=== PATIENT | male | born 1955 | race Hispanic/Latino ===

== ENCOUNTER 2018-02-26 06:28 | Day surgery (SDC) | payer BC ==
[2018-02-26] MEDS ORDERED: ECOTRIN PO ONE ×2 (06:52→06:59)
[2018-02-26] MEDS ORDERED: NACL 0.9% 500 ML 500 ML ONE (06:59)
[2018-02-26] MEDS ORDERED: NACL 0.9% 500 ML 500 ML IV SCH (07:00)
[2018-02-26 07:20] LABS: Basophils % (Auto) 0.5 % (0.0-1.8); Eosinophils # (Auto) 0.1 K/mm3 (0.0-0.4); Eosinophils % (Auto) 1.5 % (0.0-4.3); Hematocrit 53.8 % (35.5-45.6); Hemoglobin 17.8 gm/dl (11.8-15.2); Lymphocytes % (Auto) 24.2 % (13.4-35.0); Mean Corpuscular HGB Conc 33 % (32-34); Mean Corpuscular Hemoglobin 28 pg (28-32); Mean Corpuscular Volume 86 fl (84-94); Monocytes % (Auto) 11.5 % (0.0-7.3); Platelet Count 134 K/mm3 (140-440); Red Blood Count 6.28 M/mm3 (3.65-5.03); Red Cell Distribution Width 16.6 % (13.2-15.2)
[2018-02-26 07:34] LABS: INR 1.01 (0.87-1.13)
[2018-02-26 07:43] LABS: BUN/Creatinine Ratio 16; Blood Urea Nitrogen 14 mg/dL (9-20); Calcium 9.8 mg/dL (8.4-10.2); Hemolysis Index 43
[2018-02-26] MEDS ORDERED: HEPARIN 10,000 UNITS/10 ML ONE (08:22)
[2018-02-26] MEDS ORDERED: HEPARIN/NS 5000 UNIT/500ML(CATH LAB) 1,000 ML IR ONE (08:22)
[2018-02-26] MEDS ORDERED: CALAN ONE (08:23)
[2018-02-26] MEDS ORDERED: NITROGLYCERIN SYRINGE 3 ML ONE (08:23)
[2018-02-26] MEDS ORDERED: XYLOCAINE 2% INFILTRATI ONE (08:23)
[2018-02-26] MEDS ORDERED: VERSED ONE (08:39)
[2018-02-26] MEDS ORDERED: SUBLIMAZE ONE (08:40)
--- NOTE | 2018-02-26 09:18 | Short Stay Summary ---
Short Stay Documentation Date of service: 02/26/18 - History H&P: obtained from office - Allergies and Medications Current Medications: Allergies No Known Allergies Allergy (Unverified 02/26/18 06:28) Home Medications Medication Instructions Recorded Confirmed Last Taken Type Apixaban [Eliquis] 20 mg PO BID 02/26/18 02/26/18 02/23/18 History Bupropion HCl [buPROPion] 100 mg PO BID 02/26/18 02/26/18 02/24/18 History Cyclobenzaprine [Flexeril] 10 mg PO TID PRN 02/26/18 02/26/18 Unknown History Fenofibrate [Tricor] 145 mg PO QDAY 02/26/18 02/26/18 02/24/18 History Lisdexamfetamine Dimesylate 50 mg PO DAILY 02/26/18 02/26/18 02/24/18 History [Vyvanse] Rosuvastatin (Nf) [Crestor] 10 mg PO QHS 02/26/18 02/26/18 02/24/18 History SUMAtriptan SUCCINATE [Imitrex] 50 mg PO PRN PRN 02/26/18 02/26/18 Unknown History Zolpidem [Ambien] 10 mg PO QHS PRN 02/26/18 02/26/18 Unknown History Active Medications Sodium Chloride (Nacl 0.9% 500 Ml) 500 mls @ 50 mls/hr IV DIRECT MARCO ANTONIO Stop: 02/26/18 16:59 Last Admin: 02/26/18 07:21 Dose: 50 mls/hr - Brief post op/procedure progress note Date of procedure: 02/26/18 Pre-op diagnosis: sob afib Post-op diagnosis: same Anesthesia: local Estimated blood loss: none Pathology: none - Disposition Condition at discharge: Good Disposition: [id number]-01 TO HOME OR SELFCARE - Discharge Diagnoses (1) SOB (shortness of breath) on exertion Status: Chronic (2) Morbid obesity with BMI of 40.0-44.9, adult Status: Chronic (3) Atrial fibrillation Status: Chronic Qualifiers: Atrial fibrillation type: persistent Qualified Code(s): I48.1 - Persistent atrial fibrillation (4) Hypertension Status: Chronic Qualifiers: Hypertension type: essential hypertension Qualified Code(s): I10 - Essential (primary) hypertension (5) Hyperlipemia, mixed Status: Chronic Short Stay Discharge Plan Activity: advance as tolerated Diet: low cholesterol, low salt Wound: keep clean and dry Follow up with: MEMO CHEN MD [Primary Care Provider] - 7 Days
--- NOTE | 2018-02-26 10:18 | Cardiac Catherization Report ---
LEFT HEART CATHETERIZATION CLINICAL INFORMATION: A 63-year-old gentleman with atrial fibrillation, hypertension, hyperlipidemia transient cardiomyopathy, presents with shortness of breath despite medical therapy negative stress test. Left heart catheterization performed via the right radial artery, sterile technique, local anesthesia, 6-Maldivian radial sheath. Moderate sedation was supervised with 1 mg Versed and 50 mcg of fentanyl. Total sedation time was 20 minutes. START sedation time 8:50 a.m. Finished 9:10 a.m. PROCEDURE FINDINGS: Left system was engaged JL3.5 catheter. Left main large and patent, bifurcates to large LAD that is patent from proximally and distally. Diagonal 1 is a large caliber vessel, patent. Circumflex is a large caliber vessel that is patent. OM1 is a large caliber vessel patent. RCA is a large dominant vessel that is patent, bifurcates into large PDA, PLV that covers the whole lateral wall. LV gram done in BULGARIAN and DIAL view shows normal LV function. LVEDP is 60 mmHg, LV is 138/16, aortic is 136/90. No gradient across the aortic valve on pullback. 5-Maldivian catheters were taken. The guidewire, 6-Maldivian radial sheath was discontinued. Radial dressing applied. No hematoma, no bleeding. SUMMARY: 1. Normal coronaries, normal LV function, left main patent, LAD patent, diagonal patent, circ patent, RCA pain. These are large epicardial vessels. 2. Continue risk factor modification. Discussed in detail with the patient, the patient's family. JOB# [id number] ANA/CORINNE JOHNSON
--- NOTE | 2018-02-26 11:20 | Post Anesthesia Evaluation ---
- Post Anesthesia Evaluation Patient Participated: Yes Airway Patent: Yes Stable Respiratory Function: Yes Nausea/Vomiting: No Temp > 96.8F: Yes Pain Manageable: Yes Adequeate Hydration: Yes Anesthesia Complications: No Block Receding Appropriately: Not Applicable
[2018-02-26 11:26] VITALS: BP 140/111
== END 2018-02-26 12:30 | disposition home or self-care (01) ==
LOC: CATHLABREC 06:28
PROVIDERS: ATTEND Internal Medicine
DX: I42.9 Cardiomyopathy, unspecified (principal); I48.91 Unspecified atrial fibrillation; I10 Essential (primary) hypertension; E78.5 Hyperlipidemia, unspecified; E66.9 Obesity, unspecified; G47.30 Sleep apnea, unspecified; Z68.38 Body mass index [BMI] 38.0-38.9, adult; Z82.49 Family history of ischemic heart disease and other diseases of the circulatory system
CPT/HCPCS: 36415; 80048; 85025; 85610; 85730; 93005; 93010; 93458; 99156; 99157; C1769; C1894; J1644; J2250; J3010; J7040; Q9967

== ENCOUNTER 2018-04-28 07:08 | Day surgery (SDC) | payer BC ==
[2018-04-28] MEDS ORDERED: NACL 0.9% 1000 ML 1,000 ML ONE (07:41)
[2018-04-28] MEDS ORDERED: HURRICAINE ONE 20% TOPICAL SPRAY MM (07:41)
[2018-04-28 07:55] LABS: Basophils % (Auto) 0.5 % (0.0-1.8); Eosinophils # (Auto) 0.3 K/mm3 (0.0-0.4); Eosinophils % (Auto) 3.5 % (0.0-4.3); Hemoglobin 19.7 gm/dl (11.8-15.2); Lymphocytes # (Auto) 1.7 K/mm3 (1.2-5.4); Lymphocytes % (Auto) 22.8 % (13.4-35.0); Mean Corpuscular HGB Conc 33 % (32-34); Mean Corpuscular Hemoglobin 29 pg (28-32); Mean Corpuscular Volume 88 fl (84-94); Monocytes # (Auto) 0.9 K/mm3 (0.0-0.8); Monocytes % (Auto) 12.4 % (0.0-7.3); Red Blood Count 6.88 M/mm3 (3.65-5.03); Red Cell Distribution Width 16.2 % (13.2-15.2)
[2018-04-28 07:59] LABS: Hematocrit 58.5 % (35.5-45.6); Platelet Count 119 K/mm3 (140-440)
[2018-04-28] MEDS ORDERED: NACL 0.9% 1000 ML 1,000 ML IV SCH (08:00)
[2018-04-28] MEDS ORDERED: HURRICAINE ONE 20% TOPICAL SPRAY MM NR (08:00)
[2018-04-28 08:05] LABS: INR 1.06 (0.87-1.13)
[2018-04-28 08:06] LABS: Partial Thromboplastin Time 29.2 Sec. (24.2-36.6)
[2018-04-28 08:07] LABS: BUN/Creatinine Ratio 20; Blood Urea Nitrogen 16 mg/dL (9-20); Calcium 10.1 mg/dL (8.4-10.2); Hemolysis Index 85
[2018-04-28] MEDS ORDERED: XYLOCAINE MPF 2% ONE (08:11)
[2018-04-28] MEDS ORDERED: DIPRIVAN 10 MG/ML IV ONE ×2 (08:11)
--- NOTE | 2018-04-28 08:11 | Anesthesia Consultation ---
Anesthesia Consult and Med Hx Date of service: 04/28/18 - Airway Anesthetic Teeth Evaluation: Good ROM Head & Neck: Adequate Mental/Hyoid Distance: Adequate Mallampati Class: Class I Intubation Access Assessment: Possibly Difficult - Pulmonary Exam CTA: Yes - Cardiac Exam Cardiac Exam: RRR - Pre-Operative Health Status ASA Pre-Surgery Classification: ASA3 Proposed Anesthetic Plan: General - Pulmonary Hx Smoking: Yes (Quit 1977) Hx Sleep Apnea: Yes - Cardiovascular System Hx Hypertension: Yes Hx Cardia Arrhythmia: Yes (A fib, PACs, PVCs) - Central Nervous System Hx Back Pain: Yes (01/2018) Hx Psychiatric Problems: No - Hematic Hx Anemia: No - Other Systems Hx Cancer: No Hx Obesity: Yes - Additional Comments Anesthesia Medical History Comments: TRENA. NAC.
--- NOTE | 2018-04-28 08:11 | Anesthesia Day of Surgery ---
Anesthesia Day of Surgery - Day of Surgery Patient Examined: Yes Patient H&P Reviewed: Yes Patient is NPO: Yes
--- NOTE | 2018-04-28 09:28 | Short Stay Summary ---
Short Stay Documentation Date of service: 04/28/18 Narrative H&P: this is a 63 y/o male with morbid obesity and having afib, sleep apnea, and persistent afib - History Past Medical History: atrial fib, hypertension, hyperlipidemia Past Surgical History: no No surgical history Social history: no no significant social history - Allergies and Medications Current Medications: Allergies lisinopril Adverse Reaction (Uncoded 04/28/18 07:22) Unknown Home Medications Medication Instructions Recorded Confirmed Last Taken Type Apixaban [Eliquis] 20 mg PO BID 02/26/18 04/28/18 04/28/18 History 20mg Bupropion HCl [buPROPion] 100 mg PO BID 02/26/18 04/28/18 04/25/18 History 100mg Cyclobenzaprine [Flexeril 10 MG 10 mg PO TID PRN 02/26/18 04/28/18 02/26/18 History TAB] 10mg Lisdexamfetamine Dimesylate 50 mg PO DAILY 02/26/18 04/28/18 04/25/18 History [Vyvanse] 50mg SUMAtriptan SUCCINATE [Imitrex] 50 mg PO PRN PRN 02/26/18 04/28/18 04/26/18 History 50mg Zolpidem [Ambien] 10 mg PO QHS PRN 02/26/18 04/28/18 04/14/18 History 10mg Active Medications Benzocaine (Hurricaine One 20% Topical [place]) 3 spray MM PREOP NR Stop: 04/28/18 13:00 Sodium Chloride (Nacl 0.9% 1000 Ml) 1,000 mls @ 42 mls/hr IV DIRECT MARCO ANTONIO Last Admin: 04/28/18 07:49 Dose: 42 mls/hr - Physical exam General appearance: no acute distress HEENT: Atraumatic, PERRLA, EOMI Lungs: Clear to auscultation Breasts: deferred Heart: Other (irregular irregular ) Gastrointestinal: normal Male Genitourinary: deferred Rectal Exam: deferred Extremities: no ischemia Neurological: Normal gait, Normal speech, Strength at 5/5 X4 ext - Brief post op/procedure progress note Date of procedure: 04/28/18 Pre-op diagnosis: afib Post-op diagnosis: same Procedure: see report Anesthesia: MAC Estimated blood loss: none Pathology: none - Disposition Condition at discharge: Good Disposition: DC-01 TO HOME OR SELFCARE - Discharge Diagnoses (1) Atrial fibrillation Status: Chronic Qualifiers: Atrial fibrillation type: persistent (2) Hyperlipemia, mixed Status: Chronic (3) Hypertension Status: Chronic Qualifiers: Hypertension type: essential hypertension (4) Morbid obesity with BMI of 40.0-44.9, adult Status: Chronic (5) SOB (shortness of breath) on exertion Status: Chronic Short Stay Discharge Plan Activity: advance as tolerated Follow up with: MEMO CHEN MD [Primary Care Provider] - 7 Days
[2018-04-28 11:09] VITALS: BP 115/82
== END 2018-04-28 07:09 | disposition home or self-care (01) ==
LOC: CATHLABREC 07:08 → EDSTATUS 08:00
PROVIDERS: ATTEND Internal Medicine
DX: I48.2 Chronic atrial fibrillation (principal); I10 Essential (primary) hypertension; E78.2 Mixed hyperlipidemia; G47.30 Sleep apnea, unspecified; E66.01 Morbid (severe) obesity due to excess calories; Z68.41 Body mass index [BMI] 40.0-44.9, adult; Z88.8 Allergy status to other drugs, medicaments and biological substances; Z79.01 Long term (current) use of anticoagulants; Z87.891 Personal history of nicotine dependence
CPT/HCPCS: 36415; 80048; 85025; 85610; 85730; 93005; 93010; 93312; 93320; 93325; J2704; J7030